=== PATIENT | male | born 1930 | race Two or more races ===

== ENCOUNTER 2020-06-24 13:07 | Inpatient (IN) | payer OTHER ==
[~2020-06-24] VITALS: Ht 182.9 cm; Wt 102.5 kg
[2020-06-24] MEDS ORDERED: COZAAR50 MG (13:32)
[2020-06-24] MEDS ORDERED: ATORVASTATIN CA10 MG (13:32)
[2020-06-24] MEDS ORDERED: VITAMIN B125000 MCG (13:33)
[2020-06-24] MEDS ORDERED: IRO-PLEX LIQUI120 ML (13:33)
[2020-06-24] MEDS ORDERED: TAMS0.4C (13:34)
[2020-07-11] MEDS ORDERED: B-121000 MC2 (10:25)
== END 2020-07-20 15:02 | disposition home or self-care (01) | DRG 330 ==
LOC: ER 13:07 → EDSEX 13:52 → ER 13:52 → MEDI 19:14 → SEC-K 19:14 → MEDJ 19:14 → SEC-K 19:42 → MEDJ 06-25 09:46
PROVIDERS: Colon & Rectal Surgery; ADMIT Internal Medicine; ATTEND Internal Medicine
PROC: 30233N1 Transfusion of Nonautologous Red Blood Cells into Peripheral Vein, Percutaneous Approach (ICD-10-PCS; 2020-06-25)
PROC: 0DJ08ZZ Inspection of Upper Intestinal Tract, Via Natural or Artificial Opening Endoscopic (ICD-10-PCS; 2020-06-27)
PROC: 0DBK8ZZ Excision of Ascending Colon, Via Natural or Artificial Opening Endoscopic (ICD-10-PCS; 2020-06-27)
PROC: 0DBL8ZZ Excision of Transverse Colon, Via Natural or Artificial Opening Endoscopic (ICD-10-PCS; 2020-06-27)
PROC: 0DBN8ZZ Excision of Sigmoid Colon, Via Natural or Artificial Opening Endoscopic (ICD-10-PCS; 2020-06-27)
PROC: 0DBM8ZZ Excision of Descending Colon, Via Natural or Artificial Opening Endoscopic (ICD-10-PCS; 2020-06-27)
PROC: 0DBL8ZX Excision of Transverse Colon, Via Natural or Artificial Opening Endoscopic, Diagnostic (ICD-10-PCS; 2020-06-27)
PROC: 07BC4ZZ Excision of Pelvis Lymphatic, Percutaneous Endoscopic Approach (ICD-10-PCS; 2020-07-01)
PROC: 0DBL4ZZ Excision of Transverse Colon, Percutaneous Endoscopic Approach (ICD-10-PCS; principal; 2020-07-01 14:00)
PROC: 02HV33Z Insertion of Infusion Device into Superior Vena Cava, Percutaneous Approach (ICD-10-PCS; 2020-07-10)
PROC: 3E04329 Introduction of Other Anti-infective into Central Vein, Percutaneous Approach (ICD-10-PCS; 2020-07-10)
DX: C18.4 Malignant neoplasm of transverse colon (principal); C18.2 Malignant neoplasm of ascending colon; D64.9 Anemia, unspecified; D36.0 Benign neoplasm of lymph nodes; K63.5 Polyp of colon; K29.90 Gastroduodenitis, unspecified, without bleeding; K25.9 Gastric ulcer, unspecified as acute or chronic, without hemorrhage or perforation; D29.1 Benign neoplasm of prostate; I10 Essential (primary) hypertension; E78.5 Hyperlipidemia, unspecified